=== PATIENT | female | born 1990 | race Caucasian/White ===

== ENCOUNTER 2017-01-11 05:08 | Emergency (ER) | payer OTHER ==
[~2017-01-11] VITALS: Ht 167.6 cm; Wt 70.3 kg
[2017-01-11 05:22] VITALS: BP 109/68
[2017-01-11] MEDS ORDERED: IBUPROFEN 800 MG TAB PO ONE (06:00)
--- NOTE | 2017-01-11 07:43 | REP ---
Clinical: Trauma. Technique: AP, lateral, bilateral oblique views of the right ankle. Findings: Medial and lateral malleolar fractures are appreciated with overlying soft tissue swelling. No subcutaneous emphysema or radiodense foreign body. Impression: Closed bimalleolar ankle fractures with overlying soft tissue swelling. Signed by James Cherry MD 01/11/2017 07:34 A
--- NOTE | 2017-01-13 09:38 | ED PDOC ---
Post-Departure Follow-Up ncog faxed formal report of right ankle film for follow up Merlene Jefferson MD January 13, 2017 09:38
[2017-01-15] MEDS ORDERED: HYDR-3713 PO (07:46)
== END 2017-01-11 06:57 | disposition home or self-care (01) ==
LOC: M ED 06:45
DX: S82.844A Nondisplaced bimalleolar fracture of right lower leg, initial encounter for closed fracture (principal); X58.XXXA Exposure to other specified factors, initial encounter; Y92.830 Public park as the place of occurrence of the external cause; Y99.8 Other external cause status; F17.200 Nicotine dependence, unspecified, uncomplicated

== ENCOUNTER 2017-01-19 14:59 | Day surgery (SDC) | payer OTHER ==
[~2017-01-19] VITALS: Ht 167.6 cm; Wt 75.8 kg
[~2017-01-19 14:59] MED LIST: HYDR-3713 PO
[2017-01-19] MEDS ORDERED: VANCOMYCIN HCL 1,000 MG, VIAL MATE ADAPTER 1 EACH in D5W 250 ML IV ONE (15:15)
[2017-01-19 15:31] LABS: CONTROL LINE UCG INT CTR LINE PRESENT
[2017-01-19] MEDS ORDERED: LR 1,000 ML IV ONE (16:00)
[2017-01-19] MEDS ORDERED: ceFAZolin 1GM INJ (J0690) As Ordered ONE (18:56)
[2017-01-19] MEDS ORDERED: fentaNYL 100 MCG/2 ML INJECTION (J3010) As Ordered ONE (19:01)
[2017-01-19] MEDS ORDERED: MIDAZOLAM INJ 2 MG/2 ML VIAL (J2250) As Ordered ONE (19:01)
[2017-01-19] MEDS ORDERED: PROPOFOL 500 MG/50 ML VIAL As Ordered ONE (19:01)
[2017-01-19] MEDS ORDERED: ONDANSETRON 4MG/2ML VIAL (J2405) As Ordered ONE (19:03)
[2017-01-19] MEDS ORDERED: LIDOCAINE 2% INJ 100 MG/5 ML SDV (FOR ANES.) As Ordered ONE (19:03)
[2017-01-19] MEDS ORDERED: dexameTHASONE 4 MG/ML 1ML VIAL (J1100) As Ordered ONE (19:03)
[2017-01-19] MEDS ORDERED: PROPOFOL 200 MG/20 ML VIAL As Ordered ONE ×2 (19:50→20:21)
[2017-01-19] MEDS ORDERED: BUPIVACAINE/EPIN 0.25% 30 ML VIAL As Ordered ONE (20:18)
[2017-01-19] MEDS ORDERED: ONDANSETRON 4MG/2ML VIAL (J2405) IV PRN (21:00)
[2017-01-19] MEDS ORDERED: LR 1,000 ML IV SCH ×2 (21:00→21:15)
[2017-01-19] MEDS ORDERED: fentaNYL 100 MCG/2 ML INJECTION (J3010) IV PRN (21:00)
[2017-01-19] MEDS ORDERED: NORCO, ANEXSIA 5/325MG TABLET (HYDROcodone/ACETAMINOPHEN) PO PRN (21:15)
[2017-01-19 21:20] VITALS: BP 122/71
[2017-01-19] MEDS: NORCO, ANEXSIA 5/325MG TABLET (HYDROcodone/ACETAMINOPHEN) PO PRN (21:41)
[2017-01-19 22:14] VITALS: BP 120/77
[2017-01-19 22:45] VITALS: BP 109/61
[2017-01-19 23:20] VITALS: BP 122/71
[2017-01-19] MEDS: MORPHINE 4 MG/ML 1ML SYRINGE IV PRN (23:35)
[2017-01-19 23:50] VITALS: BP 108/71
--- NOTE | 2017-01-20 01:24 | REP ---
Clinical: Fracture. Open reduction and fixation. Technique: Intraoperative fluoroscopic imaging. Findings: Three intraoperative images demonstrate the patient to be status post open reduction and fixation with orthopedic hardware spanning the distal fibular/lateral malleolar fracture and medial malleolar fracture. Satisfactory alignment noted. Total fluoroscopic time 18 seconds. Impression: Status post open reduction and fixation for bimalleolar fractures with satisfactory reduction. Signed by James Cherry MD 01/20/2017 01:16 A
[2017-01-20] MEDS: NORCO, ANEXSIA 5/325MG TABLET (HYDROcodone/ACETAMINOPHEN) PO PRN ×5 (01:31→18:58)
[2017-01-20 01:40] VITALS: BP 119/72
[2017-01-20] MEDS: MORPHINE 4 MG/ML 1ML SYRINGE IV PRN ×3 (02:06→18:13)
[2017-01-20 04:30] VITALS: BP 112/66
[2017-01-20 06:00] VITALS: BP 112/78
--- NOTE | 2017-01-20 06:56 | RO ---
DATE OF PROCEDURE: 01/19/2017 PREPROCEDURE DIAGNOSIS: Right ankle bimalleolar fracture. POSTPROCEDURE DIAGNOSIS: Right ankle bimalleolar fracture. PROCEDURE: Open reduction internal fixation of right ankle bimalleolar fracture. SURGEON: Dr. Cachorro Michele LABEL FOLDER: ANESTHESIA: Spinal. ESTIMATED BLOOD LOSS: Less than 30 mL. COMPLICATIONS: None. PROCEDURE: Antibiotics were given intravenously preoperatively and then successful spinal anesthetic was induced, a tourniquet was placed on the right upper thigh and not inflated. The right lower extremity was prepped and draped in the usual sterile fashion then elevated and after appropriate time out, the tourniquet was inflated. I first addressed the medial aspect of the ankle fracture. Small and slightly curved anterior medial incision was made and then dissected carefully through the soft tissues and protecting and saphenous neurovascular structures down to the fracture site. It was interesting that there was a large thickened band of periosteum that was completely infolded into the fracture site. This was pulled out and then the joint was irrigated. All the hematoma and clot was removed and then I was able to ensure that I could get an anatomic open reduction with the point of reduction forceps. Then I turned my attention to the lateral side of the ankle joint. A lateral longitudinal incision was made. I dissected down to the fracture site and exposed the oblique fracture and opened the fracture site and cleaned it of consolidative clot and hematoma with a curette, rongeur and pickups. Then I copiously irrigated with sterile saline solution. Then when I felt I had adequate visualization of the fracture edges, an open anatomic reduction was performed with a point of reduction forceps. Once it was clamped in position, I placed an interfragmentary compression screw across the fracture site as perpendicular as possible using the 3.5 drill and then the 2.5 drill measuring and then placing a 3.5 cortical screw. This has good purchase. I then contoured a 7 hole plate as a neutralization plate across the interfragmentary screw and fixed it distally first with a cancellous screw and then one of the proximal holes was fixed with a cortical screw. Fluoroscopic imaging at this point showed that it appeared the plate was in good position and the fracture was well reduced. I then filled the remaining two holes above the fracture site with cortical screws and then two of the three distal holes were then additionally filled with fully threaded cancellous screws with good purchase. At this point, fluoroscopic imaging in the AP, mortise and lateral planes showed that the fibular fracture was well reduced and the hardware was in good position. The medial fracture site was then exposed. Once again, I ensure I had a good reduction and then I used two threaded guide pins from the 4.5 cannulate screw set to cross the fracture site, and then I had to adjust them because the first placement was a bit too close to the shoulder of the joint and thus I repositioned the threaded guide pins. Once I was satisfied that they were in reasonable position and the fracture was anatomically reduced, I used the 3.5 drill just to drill the near cortex over the threaded guide pins from the 4.5 cannulated screw set and then placed two partially threaded 4.5 cannulated screws over the top of the threaded guide pins across the fracture site. This provided good rigid fixation and fluoroscopic imaging at this point showed that the screws were in good position and the mortise was well reduced as was the fracture in general. It was nice and stable. There was no evidence of any mortise widening or instability of the syndesmosis. At this point, I concluded the procedure by copiously irrigated the wounds, let the tourniquet down, I closed the medial wound making sure that the large fold of periosteum was laid across the fracture site and then closed the deep subdermal tissues with interrupted #2-0 PDS sutures and skin was closed with haylee and then laterally I closed over the plate the deep soft tissues with interrupted #2-0 PDS sutures, skin was closed with haylee. 0.25% Marcaine with Epinephrine was placed medially and laterally. Dry sterile bulky dressing was applied followed by a well padded short leg plaster cast and then she was transferred to the recovery room in stable condition. There were no intraoperative complications. GELY
[2017-01-20 10:00] VITALS: BP 130/80
[2017-01-20 14:00] VITALS: BP 120/78
== END 2017-01-20 19:45 | disposition home or self-care (01) ==
LOC: M SDC 14:59 → M MSPAV 22:14 → M SDC 01-20 19:45
PROVIDERS: ATTEND Orthopaedic Surgery
DX: S82.841A Displaced bimalleolar fracture of right lower leg, initial encounter for closed fracture (principal); W23.1XXA Caught, crushed, jammed, or pinched between stationary objects, initial encounter; Y92.89 Other specified places as the place of occurrence of the external cause; Y93.89 Activity, other specified; Y99.8 Other external cause status; F17.210 Nicotine dependence, cigarettes, uncomplicated; D64.9 Anemia, unspecified; Z88.0 Allergy status to penicillin; Z88.1 Allergy status to other antibiotic agents; Z88.2 Allergy status to sulfonamides; Z86.79 Personal history of other diseases of the circulatory system
CPT/HCPCS: 27814; 73610; 84703; C1776

== ENCOUNTER → 2017-09-21 | Outpatient (REF) | payer OTHER | LOC: M LAB REF 13:22 | DX: J02.9 Acute pharyngitis, unspecified (principal) ==

== ENCOUNTER 2017-12-15 08:01 | Emergency (ER) | payer MEDICAID, SELFPAY, OTHER ==
[2017-12-15] MEDS: IBUPROFEN 800 MG TAB PO ×2 (08:49)
== END 2017-12-15 09:32 | disposition home or self-care (01) ==
LOC: M ED 08:01
DX: S93.402A Sprain of unspecified ligament of left ankle, initial encounter (principal); X50.1XXA Overexertion from prolonged static or awkward postures, initial encounter; Y92.098 Other place in other non-institutional residence as the place of occurrence of the external cause; F17.210 Nicotine dependence, cigarettes, uncomplicated; Z88.0 Allergy status to penicillin; Z88.2 Allergy status to sulfonamides; Z88.8 Allergy status to other drugs, medicaments and biological substances
CPT/HCPCS: 73610

== ENCOUNTER → 2018-02-08 | Outpatient (CLI) | payer OTHER | LOC: M EKG 16:09 | DX: I51.9 Heart disease, unspecified (principal) | CPT/HCPCS: 93005 ==

== ENCOUNTER 2018-07-03 23:01 | Emergency (ER) | payer OTHER ==
[2018-07-03] MEDS: TETANUS/DIPHTHERIA TOX ADSORB ADULT 0.5ML SYR/VIAL (90714) IM (23:30)
[2018-07-03 23:40] LABS: HEMATOCRIT 40.5 % (36.0-47.0); HEMOGLOBIN 13.7 g/dl (12.0-15.5); MEAN CORPUSCULAR HEMOGLOBIN 31.9 pg (27.0-33.0); MEAN CORPUSCULAR HGB CONC 33.8 g/dl (32.0-36.5); MEAN CORPUSCULAR VOLUME 94.4 fl (80.0-96.0); PLATELET COUNT, AUTOMATED 303 10^3/uL (150-450); RED BLOOD COUNT 4.29 10^6/uL (4.00-5.40); RED CELL DISTRIBUTION WIDTH 11.9 % (11.5-14.5); WHITE BLOOD COUNT 11.4 10^3/uL (4.0-10.0)
[2018-07-03 23:58] LABS: CONTROL LINE HCG INT CTR LINE PRESENT; HCG, SERUM QUALITATIVE NEGATIVE (NEGATIVE)
[2018-07-04 00:02] LABS: AMPHETAMINES LEVEL URINE NEGATIVE (NEGATIVE); BARBITURATES URINE NEGATIVE (NEGATIVE); BENZODIAZEPINES URINE NEGATIVE (NEGATIVE); CANNABINOIDS URINE NEGATIVE (NEGATIVE); COCAINE METABOLITE URINE NEGATIVE (NEGATIVE); METHADONE URINE NEGATIVE (NEGATIVE); OPIATES URINE NEGATIVE (NEGATIVE); PHENCYCLIDINE URINE NEGATIVE (NEGATIVE)
[2018-07-04 00:26] LABS: ACETAMINOPHEN LEVEL < 2.0 UG/ML (10.0-30.0); ALBUMIN 4.3 GM/DL (3.2-5.2); ALBUMIN/GLOBULIN RATIO 1.19 (1.00-1.93); ALKALINE PHOSPHATASE 39 U/L (45-117); ALT/SGPT 19 U/L (12-78); ANION GAP 9 MEQ/L (8-16); AST/SGOT 14 U/L (7-37); BILIRUBIN,DIRECT 0.1 MG/DL (0.0-0.2); BILIRUBIN,TOTAL 0.3 MG/DL (0.2-1.0); BLOOD UREA NITROGEN 6 MG/DL (7-18); CALCIUM LEVEL 8.7 MG/DL (8.5-10.1); CARBON DIOXIDE LEVEL 24 MEQ/L (21-32); CHLORIDE LEVEL 108 MEQ/L (98-107); CREATININE FOR GFR 0.64 MG/DL (0.55-1.30); ETHYL ALCOHOL (ETHANOL) 0.184 % (0.000-0.010); GLOMERULAR FILTRATION RATE > 60.0 (>60); GLUCOSE, FASTING 90 MG/DL (70-100); POTASSIUM SERUM 3.7 MEQ/L (3.5-5.1); SODIUM LEVEL 141 MEQ/L (136-145); THYROID STIMULATING HORMONE 0.894 uIU/ML (0.358-3.740); TOTAL PROTEIN 7.9 GM/DL (6.4-8.2)
== END 2018-07-04 01:34 | disposition home or self-care (01) ==
LOC: M ED 07-04 01:34
DX: F10.229 Alcohol dependence with intoxication, unspecified (principal); Y90.0 Blood alcohol level of less than 20 mg/100 ml; Z60.9 Problem related to social environment, unspecified; S50.812A Abrasion of left forearm, initial encounter; X78.8XXA Intentional self-harm by other sharp object, initial encounter; Y92.89 Other specified places as the place of occurrence of the external cause; Z88.0 Allergy status to penicillin; Z88.2 Allergy status to sulfonamides; Z88.8 Allergy status to other drugs, medicaments and biological substances
CPT/HCPCS: 90714

== ENCOUNTER 2020-03-27 04:50 | Inpatient (IN) | payer BC, MEDICAID, OTHER ==
[2020-03-27] MEDS ORDERED: NICOTINE 21MG/24HR 1 EA TRANSDERMAL ONE (07:54)
[2020-03-28] MEDS ORDERED: ACETAMINOPHEN TAB 650MG DOSE (2X325MG) As Ordered ONE (09:42)
[2020-03-28] MEDS ORDERED: ACETAMINOPHEN TAB 650MG DOSE (2X325MG) ONE (09:42)
[2020-03-28] MEDS ORDERED: FLUoxetine 20 MG CAP As Ordered ONE (12:29)
[2020-03-28] MEDS ORDERED: FLUoxetine 20 MG CAP ONE (12:29)
[2020-03-28] MEDS ORDERED: NICOTINE 21MG/24HR 1 EA TRANSDERMAL ONE (12:29)
[2020-03-28] MEDS ORDERED: hydrOXYzine 25 MG TAB ONE (12:29)
[2020-03-28] MEDS ORDERED: hydrOXYzine 25 MG TAB As Ordered ONE (12:30)
[2020-03-28] MEDS ORDERED: NICOTINE 21MG/24HR 1 EA TRANSDERMAL As Ordered ONE (12:30)
[2020-03-29] MEDS ORDERED: ONDANSETRON 4 MG TAB ONE (07:55)
[2020-03-29] MEDS ORDERED: FLUoxetine 20 MG CAP ONE (07:55)
[2020-03-29] MEDS ORDERED: FLUoxetine 20 MG CAP As Ordered ONE (07:55)
[2020-03-29] MEDS ORDERED: ONDANSETRON 4 MG TAB As Ordered ONE (08:46)
[2020-03-29] MEDS ORDERED: AMANTADINE 100MG TABLET ONE (09:00)
[2020-03-29] MEDS ORDERED: cloNIDine 0.1 MG TAB As Ordered ONE ×2 (11:45→20:14)
[2020-03-29] MEDS ORDERED: ONDANSETRON 4 MG ORAL DISINTEGRATING TAB As Ordered ONE (17:56)
[2020-03-29] MEDS ORDERED: ONDANSETRON 4 MG ORAL DISINTEGRATING TAB ONE (17:56)
[2020-03-29] MEDS ORDERED: cloNIDine 0.1 MG TAB ONE (20:14)
[2020-03-29] MEDS ORDERED: traZODone 50 MG TAB ONE (20:14)
[2020-03-29] MEDS ORDERED: traZODone 50 MG TAB As Ordered ONE (20:15)
[2020-03-30] MEDS ORDERED: cloNIDine 0.1 MG TAB ONE ×2 (08:10→20:10)
[2020-03-30] MEDS ORDERED: NICOTINE 21MG/24HR 1 EA TRANSDERMAL ONE (08:10)
[2020-03-30] MEDS ORDERED: FLUoxetine 20 MG CAP ONE (08:10)
[2020-03-30] MEDS ORDERED: FLUoxetine 20 MG CAP As Ordered ONE (08:10)
[2020-03-30] MEDS ORDERED: NICOTINE 21MG/24HR 1 EA TRANSDERMAL As Ordered ONE (08:10)
[2020-03-30] MEDS ORDERED: cloNIDine 0.1 MG TAB As Ordered ONE ×2 (08:10→20:10)
[2020-03-30] MEDS ORDERED: hydrOXYzine 25 MG TAB As Ordered ONE (08:10)
[2020-03-30] MEDS ORDERED: hydrOXYzine 25 MG TAB ONE (08:10)
[2020-03-30] MEDS ORDERED: traZODone 50 MG TAB ONE (20:10)
[2020-03-30] MEDS ORDERED: traZODone 50 MG TAB As Ordered ONE (20:10)
[2020-03-31] MEDS ORDERED: cloNIDine 0.1 MG TAB As Ordered ONE ×2 (08:14→19:55)
[2020-03-31] MEDS ORDERED: hydrOXYzine 25 MG TAB ONE ×2 (08:14→16:23)
[2020-03-31] MEDS ORDERED: NICOTINE 21MG/24HR 1 EA TRANSDERMAL ONE (08:14)
[2020-03-31] MEDS ORDERED: cloNIDine 0.1 MG TAB ONE ×2 (08:14→19:55)
[2020-03-31] MEDS ORDERED: MAALOX 30 ML SUSP *UDC ONE (08:14)
[2020-03-31] MEDS ORDERED: hydrOXYzine 25 MG TAB As Ordered ONE ×2 (08:14→16:23)
[2020-03-31] MEDS ORDERED: FLUoxetine 20 MG CAP ONE (08:14)
[2020-03-31] MEDS ORDERED: NICOTINE 21MG/24HR 1 EA TRANSDERMAL As Ordered ONE (08:15)
[2020-03-31] MEDS ORDERED: FLUoxetine 20 MG CAP As Ordered ONE (08:15)
[2020-03-31] MEDS ORDERED: MOM 30ML SUSPENSION UDC As Ordered ONE (08:15)
[2020-03-31] MEDS ORDERED: MAALOX 30 ML SUSP *UDC As Ordered ONE (08:20)
[2020-03-31] MEDS ORDERED: ONDANSETRON 4 MG TAB ONE (10:14)
[2020-03-31] MEDS ORDERED: ONDANSETRON 4 MG TAB As Ordered ONE (10:14)
[2020-03-31] MEDS ORDERED: traZODone 50 MG TAB As Ordered ONE (19:55)
[2020-03-31] MEDS ORDERED: traZODone 50 MG TAB ONE (19:55)
[2020-04-01] MEDS ORDERED: hydrOXYzine 25 MG TAB As Ordered ONE (06:30)
[2020-04-01] MEDS ORDERED: hydrOXYzine 25 MG TAB ONE (06:30)
[2020-04-01] MEDS ORDERED: NICOTINE 21MG/24HR 1 EA TRANSDERMAL ONE (08:11)
[2020-04-01] MEDS ORDERED: cloNIDine 0.1 MG TAB ONE (08:11)
[2020-04-01] MEDS ORDERED: FLUoxetine 20 MG CAP ONE (08:11)
[2020-04-01] MEDS ORDERED: FLUoxetine 20 MG CAP As Ordered ONE (08:11)
[2020-04-01] MEDS ORDERED: cloNIDine 0.1 MG TAB As Ordered ONE (08:12)
[2020-04-01] MEDS ORDERED: NICOTINE 21MG/24HR 1 EA TRANSDERMAL As Ordered ONE (08:13)
[2020-04-01] MEDS ORDERED: AMANTADINE 100MG TABLET ONE (09:00)
[2020-04-27 12:52] LABS: BASO # 0.1 10^3/uL (0.0-0.2); BASO % 0.7 % (0.0-1.0); EOS # 0.1 10^3/uL (0.0-0.5); EOS % 1.3 % (0.0-3.0); HEMATOCRIT 35.3 % (36.0-47.0); HEMOGLOBIN 12.1 g/dl (12.0-15.5); LYMPH # 2.1 10^3/uL (1.5-5.0); LYMPH % 20.1 % (24.0-44.0); MEAN CORPUSCULAR HEMOGLOBIN 31.5 pg (27.0-33.0); MEAN CORPUSCULAR HGB CONC 34.3 g/dl (32.0-36.5); MEAN CORPUSCULAR VOLUME 91.9 fl (80.0-96.0); MONO # 1.1 10^3/uL (0.0-0.8); MONO % 10.1 % (0.0-5.0); NEUTROPHILS # 7.1 10^3/uL (1.5-8.5); NEUTROPHILS % 67.5 % (36.0-66.0); PLATELET COUNT, AUTOMATED 287 10^3/uL (150-450); RED BLOOD COUNT 3.84 10^6/uL (4.00-5.40); WHITE BLOOD COUNT 10.4 10^3/uL (4.0-10.0)
[2020-05-03 10:06] LABS: ACETAMINOPHEN LEVEL < 2.0 UG/ML (10.0-30.0); ALBUMIN 3.9 GM/DL (3.2-5.2); ALT/SGPT 25 U/L (12-78); BILIRUBIN,DIRECT 0.2 MG/DL (0.0-0.2); BILIRUBIN,TOTAL 0.8 MG/DL (0.2-1.0); BLOOD UREA NITROGEN 14 MG/DL (7-18); CALCIUM LEVEL 8.9 MG/DL (8.5-10.1); CARBON DIOXIDE LEVEL 27 MEQ/L (21-32); CHLORIDE LEVEL 107 MEQ/L (98-107); ETHYL ALCOHOL (ETHANOL) < 0.003 % (0.000-0.010); GLOMERULAR FILTRATION RATE > 60.0 (>60); GLUCOSE, FASTING 80 MG/DL (70-100); HCG, SERUM QUALITATIVE NEGATIVE (NEGATIVE); POTASSIUM SERUM 3.2 MEQ/L (3.5-5.1); SALICYLATE LEVEL 4.4 MG/DL (5.0-30.0); SODIUM LEVEL 140 MEQ/L (136-145); THYROID STIMULATING HORMONE 0.247 uIU/ML (0.358-3.740); TOTAL PROTEIN 7.5 GM/DL (6.4-8.2)
[2020-05-03 10:07] LABS: AMPHETAMINES LEVEL URINE NEGATIVE (NEGATIVE); BARBITURATES URINE NEGATIVE (NEGATIVE); BENZODIAZEPINES URINE POSITIVE (NEGATIVE); CANNABINOIDS URINE POSITIVE (NEGATIVE); COCAINE METABOLITE URINE POSITIVE (NEGATIVE); METHADONE URINE POSITIVE (NEGATIVE); OPIATES URINE NEGATIVE (NEGATIVE); PHENCYCLIDINE URINE NEGATIVE (NEGATIVE)
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
--- NOTE | 2020-05-24 11:32 | MHIPN ---
DATE: 03/30/2020 The patient was admitted on 03/27/2020 and she self-presented to the emergency room saying that she felt unsafe and she requested admission to feel safe. HISTORY OF PRESENT ILLNESS: The patient was seen before the day of her admission and she had come to the emergency room asking to be admitted because she wanted to feel safe and she requested not to be sent home. She reported symptoms related to substance abuse and during the interview she had delayed responses and appeared internally preoccupied. She told staff at the emergency room I dont know whats real anymore. INTERVAL HISTORY: Today, the patient reports feeling better. She says that she is sleeping well. She denies going through withdrawals at this time. Reports good appetite and an improvement in her mood. She reports a previous history of anxiety and depression, but she says that she thinks she has had a good response to Prozac. By the time of her admission, she was not on any medications. SUBJECTIVE: The patient denies suicidal or homicidal ideation, denies thought delusions and denies auditory, visual, or tactile hallucinations at this time. OBJECTIVE (MENTAL STATUS EXAMINATION): The patient was alert and oriented times three, pleasant, cooperative, with good eye contact. She was dressed in hospital clothes, with good hygiene. Speech was normal in rate, rhythm, tone, and volume and she was spontaneous and fluent. Thought process was linear and coherent. Thought content was negative for suicidal or homicidal ideation, negative for thought delusions, and she denies auditory, visual, or tactile hallucinations. She was not seen responding to internal stimuli. Her mood and affect are euthymic and her affect is reactive, congruent with mood. Insight and judgment are good. DIAGNOSES: 1. Major depressive disorder, single episode, moderate. 2. Stimulant use disorder. 3. Cannabis use disorder. 4. Chemical use disorder. ASSESSMENT AND PLAN: The patient has had a good response to treatment, she has been receiving Prozac and for her withdrawal she received clonidine 0.1 mg twice a day and amantadine 100 mg daily. She was feeling nauseous and she received Zofran ODT 4 mg sublingual every 8 hours as needed for vomiting. The patient will continue with the same medications and we will continue to monitor. She will probably be ready for discharge on Wednesday. GELY
--- NOTE | 2020-05-24 11:33 | MHIPN ---
DATE: 03/31/2020 HISTORY: Ms. Briseyda Smallwood was admitted a couple days ago to the inpatient mental health unit after she came to the emergency room asking to be admitted. The patient was found to be depressed and could not contract for safety. It was believed at the moment that her reaction could be secondary to substance abuse. SUBJECTIVE: The patient reports that she wants to leave, she says that she wants to go home, that her sister and her children are going back to [place] and she would like to spend the night with them, with her family, she does not want to be discharged tomorrow, 04/01/2020, because she says that what she was hoping was to spend the night at her house. As this tag writer explained that it is better if she leaves tomorrow morning, she gets upset because she says that she signed in voluntarily, but even though she came voluntarily to the floor, she says that she does not know that she was admitted as a 9.39. She denies suicidal ideation, denies homicidal ideation, denies thought delusions, and denies hallucinations. She denies medication side effects and denies cravings. OBJECTIVE (MENTAL STATUS EXAMINATION): The patient was alert and oriented times three, she was dressed in hospital clothes, she was superficially cooperative and easily irritated. Her eye contact was poor, her thought process was linear and coherent, and her thought content was negative for suicidal or homicidal thoughts and negative for thought delusions at the time of her mental status exam, but she had anxious and irritable thoughts related to her discharge. Her mood and affect were anxious and irritable and her insight and judgment were still limited. ASSESSMENT AND PLAN: The patient seems to be inpatient to be discharged, she does not want to wait, but she will have to wait until she sees her inpatient provider tomorrow. I think that one of the reasons as of why she wants to be discharged is because she might be experiencing some cravings given the fact that she has a substance abuse problem. The patient has been compliant with medications, has been sociable in the unit, has been cooperative, and apparently she does not need more treatment, but I believe that her substance abuse problem needs to be addressed. She is still not insightful about the severity of her problem. I have encouraged her to keep attending groups and to seek advice and help with the staff at inpatient mental health unit ([facility]). GELY
--- NOTE | 2020-05-24 13:44 | MHDS ---
PSYCHIATRIC DISCHARGE DATE OF ADMISSION: 03/28/2020 DATE OF DISCHARGE: 04/01/2020 DIAGNOSES: 1. Major depressive disorder, single episode, moderate. 2. Stimulant use disorder. 3. Tobacco use disorder. 4. Cannabis use disorder. DISCHARGE MEDICATIONS: - Vistaril 50 mg twice daily as needed for anxiety - nicotine patch 14 mg, transdermal patch, one patch daily as needed for nicotine withdrawal - Prozac 20 mg daily. A paper prescription was written for patient's discharge. That is in patient's discharge folder. DISPOSITION: Patient is being discharged to home. DIET: Regular. ACTIVITY: As tolerated. FOLLOWUP: Patient will followup with [facility]. Please see sr. merchandise planner's note, Andrew, on patient's continued followup. BRIEF REASON FOR ADMISSION: Patient is a single female who was admitted a few days ago to the inpatient mental health unit. She brought herself to the emergency room requesting admission. She reported that she was depressed and could not contract for safety. Patient has a long history of polysubstance abuse. States that she has had a bad year and fallen back into drug use. She lost custody of her daughter, but the daughter is actually with her mother. She reports that several days ago she was contemplating jumping off a bridge, because she was having suicidal thoughts and believing that people were following her. On 03/29/2020, patient was experiencing withdrawal symptoms from stimulant use. She was prescribed clonidine 0.1 mg twice daily and Amantadine 100 mg, Zofran ODT 4 mg sublingual every 8 hours as needed for vomiting. She responded well to that. Reports that she only had withdrawal symptoms on that day but reports that it was very "tortuous" for her. She reported that she had symptoms of nausea and vomiting. She states that she vomited several times during the day, felt helpless and alone. She reports that she had a good weekend. Feels better today. Patient reports to me that she has been working on long-term and short-term goals. States that her short-term goals are to see her grandparents and see her daughter, who is 9 years old, residing with her mother. The long-term goals are to get her GED and possibly work on a counseling degree. Patient reports that she is very good today, feels better. She is sleeping well. Not going through withdrawal at this time. Reports good appetite and improvement in her mood. She feels that she is stable. She is reporting efficacy with Prozac and is requesting discharge today. MENTAL STATUS EXAMINATION: Patient is alert and oriented times four to person, place, time, and situation. Pleasant and cooperative in the interview, making good eye contact. She is appropriately dressed. Good hygiene and grooming. Speech is normal rate, tone, and volume, and she is conversant. Thought process is linear, goal oriented, and coherent. She has no expressions or ideations for suicidal or homicidal ideation , planning, or intent. She is not observed and denies any thought delusions, auditory or visual hallucinations. No paranoia, psychosis, sangita. She is not responding to internal stimuli. Her mood and affect are greatly improved, euthymic. Her affect is congruent with her mood. Memory is intact. Her insight and judgment are good. DIAGNOSES: 1. Major depressive disorder, single episode, moderate. 2. Stimulant disorder. 3. Cannabis use disorder. 4. Tobacco use disorder. At this time, patient is stable for discharge, and she has met criteria for discharge by the treatment team. GELY
[2020-06-23 13:02] LABS: BLOOD UREA NITROGEN 12 MG/DL (7-18); CALCIUM LEVEL 9.5 MG/DL (8.5-10.1); CARBON DIOXIDE LEVEL 28 MEQ/L (21-32); CHLORIDE LEVEL 105 MEQ/L (98-107); CREATININE FOR GFR 0.85 MG/DL (0.55-1.30); GLOMERULAR FILTRATION RATE > 60.0 (>60); GLUCOSE, FASTING 84 MG/DL (70-100); MAGNESIUM LEVEL 2.2 MG/DL (1.8-2.4); POTASSIUM SERUM 4.1 MEQ/L (3.5-5.1); SODIUM LEVEL 136 MEQ/L (136-145)
== END 2020-04-01 09:20 | disposition home or self-care (01) | DRG 751 ==
LOC: M ED 04:50 → M PSY 03-28 02:45
PROVIDERS: ADMIT Psychiatry & Neurology Addiction Medicine; ATTEND Psychiatry & Neurology Addiction Medicine
DX: F32.1 Major depressive disorder, single episode, moderate (principal); F15.90 Other stimulant use, unspecified, uncomplicated; F17.200 Nicotine dependence, unspecified, uncomplicated; F12.90 Cannabis use, unspecified, uncomplicated; Z79.899 Other long term (current) drug therapy; Z88.2 Allergy status to sulfonamides; Z88.8 Allergy status to other drugs, medicaments and biological substances

== ENCOUNTER 2020-04-15 01:24 | Inpatient (IN) | payer BC, MEDICAID, OTHER ==
[~2020-04-15] VITALS: Ht 167.6 cm; Wt 67.4 kg
[2020-04-15 01:42] LABS: BASO # 0.1 10^3/uL (0.0-0.2); BASO % 0.7 % (0.0-1.0); EOS # 0.1 10^3/uL (0.0-0.5); EOS % 0.9 % (0.0-3.0); HEMATOCRIT 34.2 % (36.0-47.0); HEMOGLOBIN 11.6 g/dl (12.0-15.5); LYMPH # 3.1 10^3/uL (1.5-5.0); MEAN CORPUSCULAR HEMOGLOBIN 31.5 pg (27.0-33.0); MEAN CORPUSCULAR HGB CONC 33.9 g/dl (32.0-36.5); MEAN CORPUSCULAR VOLUME 92.9 fl (80.0-96.0); MONO % 9.7 % (0.0-5.0); NEUTROPHILS # 5.9 10^3/uL (1.5-8.5); NEUTROPHILS % 58.4 % (36.0-66.0); PLATELET COUNT, AUTOMATED 260 10^3/uL (150-450); RED BLOOD COUNT 3.68 10^6/uL (4.00-5.40); WHITE BLOOD COUNT 10.2 10^3/uL (4.0-10.0)
[2020-04-15] MEDS ORDERED: NS 1,000 ML IV ONE (01:45)
[2020-04-15 01:57] LABS: HCG, SERUM QUALITATIVE NEGATIVE (NEGATIVE)
[2020-04-15 02:20] LABS: ACETAMINOPHEN LEVEL < 2.0 UG/ML (10.0-30.0); ALBUMIN 3.8 GM/DL (3.2-5.2); ALT/SGPT 15 U/L (12-78); BILIRUBIN,DIRECT < 0.1 MG/DL (0.0-0.2); BILIRUBIN,TOTAL 0.2 MG/DL (0.2-1.0); BLOOD UREA NITROGEN 13 MG/DL (7-18); CALCIUM LEVEL 8.9 MG/DL (8.5-10.1); CARBON DIOXIDE LEVEL 28 MEQ/L (21-32); CHLORIDE LEVEL 108 MEQ/L (98-107); CPK CREATINE PHOSPHOKINASE 106 U/L (26-192); CREATININE FOR GFR 0.69 MG/DL (0.55-1.30); ETHYL ALCOHOL (ETHANOL) 0.025 % (0.000-0.010); GLOMERULAR FILTRATION RATE > 60.0 (>60); GLUCOSE, FASTING 101 MG/DL (70-100); POTASSIUM SERUM 3.5 MEQ/L (3.5-5.1); SALICYLATE LEVEL 4.1 MG/DL (5.0-30.0); SODIUM LEVEL 141 MEQ/L (136-145); THYROID STIMULATING HORMONE 0.473 uIU/ML (0.358-3.740); TOTAL PROTEIN 7.1 GM/DL (6.4-8.2)
[2020-04-15] MEDS ORDERED: PROZ20CA11 PO (02:44)
[2020-04-15] MEDS ORDERED: HYDR-3363 PO (02:44)
[2020-04-15 02:48] LABS: AMPHETAMINES LEVEL URINE NEGATIVE (NEGATIVE); BARBITURATES URINE NEGATIVE (NEGATIVE); BENZODIAZEPINES URINE NEGATIVE (NEGATIVE); CANNABINOIDS URINE POSITIVE (NEGATIVE); COCAINE METABOLITE URINE NEGATIVE (NEGATIVE); METHADONE URINE NEGATIVE (NEGATIVE); OPIATES URINE NEGATIVE (NEGATIVE); PHENCYCLIDINE URINE NEGATIVE (NEGATIVE)
[2020-04-15] MEDS ORDERED: LORazepam 2 MG/ML VIAL IV STA (04:32)
[2020-04-15] MEDS ORDERED: LORazepam 2 MG TAB PO PRN (17:15)
[2020-04-15] MEDS ORDERED: MOM 30ML SUSPENSION UDC PO PRN (17:15)
[2020-04-15] MEDS ORDERED: MAALOX 30 ML SUSP *UDC PO PRN (17:15)
[2020-04-15] MEDS ORDERED: cloNIDine 0.1 MG TAB PO PRN (17:15)
[2020-04-15] MEDS: THIAMINE 100 MG TAB PO SCH (18:30)
[2020-04-15] MEDS: hydrOXYzine 25 MG TAB PO SCH (21:00)
[2020-04-15 21:08] VITALS: BP 126/69
[2020-04-15 21:09] VITALS: BP 126/69
[2020-04-16 06:29] VITALS: BP 133/87
[2020-04-16 07:25] VITALS: BP 133/87
[2020-04-16] MEDS: FLUoxetine 20 MG CAP PO SCH (09:19)
[2020-04-16] MEDS: FOLIC ACID 1 MG TAB PO SCH (09:19)
[2020-04-16] MEDS: THIAMINE 100 MG TAB PO SCH ×2 (09:19→21:33)
[2020-04-16] MEDS: hydrOXYzine 25 MG TAB PO SCH ×2 (09:19→21:33)
[2020-04-16] MEDS: MULTIVITAMINS/MINERALS THERAP 1 TAB PO SCH (09:19)
[2020-04-16] MEDS: NICOTINE 21MG/24HR 1 EA TRANSDERMAL TD SCH (11:35)
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
--- NOTE | 2020-04-16 14:05 | HPEPDOC ---
General Date of Admission Apr 15, 2020 at 17:13 Date of Service: Apr 16, 2020 Chief Complaint The patient is a 29-year-old female admitted with a reason for visit of Unspecified Depressive Disorder. Source: Patient Exam Limitations: No limitations Timing/Duration: Other (yesterday) Severity: Other (N/A) Associated Symptoms: Other (suicidal) History of Present Illness 29 YOF with PMHx of Depression, tried to harm herself yesterday by taking unknown amount of Benedryl,Hydroxyzine,prozac,meth and blas. According to pt she tried to hurst herself as she missed her children and her mother has the custody of her children. Pt denies any associated symptoms but does complaint of persistant depression. She is not suicidal or homicidal at present.Pt offers no medical complaints Home Medications Scheduled Fluoxetine HCl (Prozac) 20 Mg Capsule, 20 MG PO DAILY, (Reported) Hydroxyzine HCl (Hydroxyzine HCl) 25 Mg Tablet, 25 MG PO BID, (Reported) Allergies Coded Allergies: Penicillins (Unverified Allergy, Intermediate, HIVES, 04/15/20) Sulfa (Sulfonamide Antibiotics) (Verified Allergy, Intermediate, HIVES, 04/15/20) meperidine (Verified Allergy, Intermediate, HIVES, 04/15/20) Past Medical History Medical History depression Surgical History ORIF rt ankle Family History REVIEWED, NON CONTRIBUTORY Social History * Smoker: Denies Alcohol: occationally Drugs: marijuana, prescription drugs, other (blas,meth) A-FIB/CHADSVASC A-FIB History Current/History of A-Fib/PAF?: No Review of Systems Constitutional: Denies: Chills, Fever, Malaise, Night Sweats, Weakness, Fatigue, Weight Loss, Lethargy, Other Eyes: Denies: Pain, Vision change, Conjunctivae inflammation, Eyelid inflammation, Redness, Other Pulmonary: Denies: Dyspnea, Cough, Pleuritic Chest Pain, Other Symptoms Cardiovascular: Denies: Chest Pain, Palpitations, Orthopnea, Paroxysmal Noc. Dyspnea, Edema, Lt Headedness, Other Symptoms Gastrointestinal: Denies: Nausea, Vomiting, Abdominal Pain, Diarrhea, Constipation, Melena, Hematochezia, Other Symptoms Hematologic: Denies: Bruising, Bleeding Excessively, Petecchia, Purpura, Enlarged Lymph Nodes, Other Hematologic Endocrine: Denies: Polydipsia, Polyphagia, Polyuria, Heat Intolerance, Cold Intolerance, Other Endocrine Sx Musculoskeletal: Denies: Neck Pain, Back Pain, Shoulder Pain, Arm Pain, Hand Pain, Leg Pain, Foot Pain, Joint Pain, Muscle Pain, Spasms, Other Symptoms Neurological: Denies: Weakness, Numbness, Incoordination, Change in speech, Confusion, Seizures, Other Symptoms Psych: Reports: Depression, Thoughts of Self Harm Physical Examination General Exam: Positive: Alert, Cooperative Eye Exam: Positive: PERRLA, Conjunctiva & lids normal Neck Exam: Positive: Supple Chest Exam: Positive: Clear to auscultation, Normal air movement Heart Exam: Positive: Rate Normal, Regular Rhythm Abdomen Exam: Positive: Normal bowel sounds, Soft Extremity Exam: Positive: Normal pulses Skin Exam: Positive: Nl turgor and temperature Neuro Exam: Positive: Strength at 5/5 X4 ext, Sensation Intact, Cranial Nerves 3-12 NL Psych Exam: Positive: Mental status NL, Mood NL, Oriented x 3 Vital Signs Vital Signs Date Time Temp Pulse Resp B/P (MAP) Pulse Ox O2 Delivery O2 Flow Rate FiO2 04/16/20 07:25 69 133/87 04/16/20 06:29 97.7 16 04/15/20 21:09 97 Room Air Problems (1) Poly-drug misuser Status: Chronic Problem Text: hx of poly-drug abuse Pt took multiple presdcription/OTC/and street drugs along with alcohol to self harm herself. Pt is clinically stable now, with NL vital signs, NL physical exam CBC/CMP WNL Please call as needed (2) Suicidal ideation Status: Acute Problem Text: admitted to in pt mental health unit individual and group councelling pharma intervention as per psych Plan / VTE VTE Prophylaxis Ordered?: No VTE Exclusion Mechanical Proph: Other VTE Exclusion Pharmacological: Other ROBERTO ALVA MD Apr 16, 2020 14:05
[2020-04-16 17:56] VITALS: BP 117/60
[2020-04-16 20:00] VITALS: BP 130/70
[2020-04-16] MEDS: traZODone 50 MG TAB PO PRN (21:33)
[2020-04-17 06:00] VITALS: BP 121/56
[2020-04-17 06:59] VITALS: BP 121/56
[2020-04-17] MEDS: ACETAMINOPHEN TAB 650MG DOSE (2X325MG) PO PRN (07:14)
[2020-04-17] MEDS: hydrOXYzine 25 MG TAB PO SCH ×2 (07:59→20:11)
[2020-04-17] MEDS: NICOTINE 21MG/24HR 1 EA TRANSDERMAL TD SCH (07:59)
[2020-04-17] MEDS: FOLIC ACID 1 MG TAB PO SCH (07:59)
[2020-04-17] MEDS: FLUoxetine 20 MG CAP PO SCH (07:59)
[2020-04-17] MEDS: MULTIVITAMINS/MINERALS THERAP 1 TAB PO SCH (07:59)
[2020-04-17] MEDS: THIAMINE 100 MG TAB PO SCH ×2 (07:59→20:11)
[2020-04-17] MEDS ORDERED: ONDANSETRON 4 MG TAB PO PRN (08:30)
[2020-04-17] MEDS: AMANTADINE 100MG TABLET PO SCH (10:22)
[2020-04-17 13:47] VITALS: BP 136/79
--- NOTE | 2020-04-17 14:07 | MHIPNPDOC ---
[facility] Progress Note Progress Note DATE OF SERVICE: 04/17/20 HISTORY: Patient is a 29 year old Female with her second admission in less than a month. On this occasion patient took an overdose of Atarax, Prozac and ETOH which she reports readily. She is however not reporting that she also had an overdose of Benadryl with Stimulants and that she had told her sister that she "didn't want to live anymore" VITAL SIGNS: See below. NEW TEST RESULTS: . CURRENT MEDICATIONS: See below. MENTAL STATUS EXAMINATION: Patient is a 29-year old female, who is s/p suicide attempt by overdose. Speech: Is minimal. Language skills are good. Thought processes including: linear and goal oriented. Thought content: irritability, mild depression due to withdrawal symptoms. Abstract reasoning, and computation: fair Description of associations: none Description of abnormal or psychotic thoughts: None Judgment: fair Insight: fair Orientation: alert and oriented Recent and remote memory: intact Attention span and concentration: good Language: good Fund of knowledge: average, congruent with her education Mood: Mildly Depressed. Affect: Flat/apathetic DIAGNOSES: 1. Unspecified Depressive Disorder, s/p suicide attempt by overdose 2. Stimulant Use Disorder 3. Cannabis Use Disorder 4. ETOH Use Disoder ASSESSMENT: Patient is not stable for discharge. She is observed to be w ithdrawing from Stimulant Use. She is being medicated for Stimulant Withdrawal. Patient had initially told staff that she had been in sobriety for a month. Patient was assessed in the bathroom with several staff helping her during severe withdrawal symptoms of vomiting. Zofran ODT 4 mg every 8 hours ordered. Amantadine 100 mg daily and Clonidine 0.1 mg twice daily ordered. Patient was unable to speak during this time She has been extremely reticent about her recent drug use and the withdrawal symptoms may have been curtailed had she been forthcoming with this information. Patient is now complaining of nausea, has been vomiting, has general aches and pain. Attempted to meet with patient in the afternoon when she may have felt better MANAGEMENT PLAN: We will stabilize her and observe for any withdrawal complications. Patient is not requesting rehab although this was reinforced on this admission as it was on the last admission two weeks ago. 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 I have highly recommended an intensive outpatient substance abuse treatment if it is available to her. EKG ordered to determine any QT prolongation. Sinus Bradycardia with QT interval of 562. surgical consultant aware. TIME SPENT: 35 minutes. Vital Signs Vital Signs Date Time Temp Pulse Resp B/P (MAP) Pulse Ox O2 Delivery O2 Flow Rate FiO2 04/17/20 06:59 98.7 77 16 121/56 (77) Room Air 04/15/20 21:09 97 Current Medications Current Medications Medications (Trade) Dose Ordered Sig/Tushar Route PRN Reason Start Time Stop Time Status Last Admin Dose Admin Acetaminophen (Tylenol Tab) 650 mg Q6HP PRN PO HEADACHE or DISCOMFORT 04/15/20 17:15 04/17/20 07:14 Al Hydrox/Mg Hydrox/Simethicone (Mylanta) 30 ml Q4HP PRN PO HEARTBURN/INDIGESTION 04/15/20 17:15 04/17/20 07:59 Amantadine HCl (Symmetrel) 100 mg DAILY PO 04/17/20 09:00 04/17/20 10:22 Clonidine HCl (Catapres) 0.1 mg TIDP PRN PO WITHDRAWAL SYMPTOMS 04/15/20 17:15 Fluoxetine HCl (PROzac) 20 mg DAILY PO 04/16/20 09:00 04/17/20 07:59 Folic Acid (Folic Acid) 1 mg DAILY PO 04/16/20 09:00 04/17/20 07:59 Home Med (Med Rec Complete!) ASDIRECTED XX 04/15/20 14:30 04/15/20 14:29 DC Hydroxyzine HCl (Atarax) 25 mg BID PO 04/15/20 21:00 04/17/20 07:59 Lorazepam (Ativan) 2 mg ASDIRECTED PRN PO SEE PROTOCOL 04/15/20 17:15 Lorazepam (Ativan) 2 mg STAT STAT IV 04/15/20 04:32 04/15/20 04:33 DC 04/15/20 04:38 Magnesium Hydroxide (Milk Of Magnesia) 30 ml DAILYPRN PRN PO CONSTIPATION 04/15/20 17:15 Multivitamins (Theragram-M) 1 tab DAILY PO 04/16/20 09:00 04/17/20 07:59 Nicotine (Nicoderm Cq 21mg) 1 patch DAILY TD 04/16/20 11:30 04/17/20 07:59 Ondansetron HCl (Zofran Odt) 4 mg Q8HP PRN PO NAUSEA OR VOMITING 04/17/20 09:30 Ondansetron HCl (Zofran) 4 mg Q8HP PRN PO NAUSEA OR VOMITING 04/17/20 08:30 04/17/20 09:24 DC 04/17/20 08:41 Thiamine HCl (Thiamine HCl) 100 mg BID PO 04/15/20 18:00 04/18/20 09:01 04/17/20 07:59 Trazodone HCl (Desyrel) 50 mg QHSP PRN PO INSOMNIA 04/15/20 17:15 04/16/20 21:33 Allergies Coded Allergies: Penicillins (Unverified Allergy, Intermediate, HIVES, 04/15/20) Sulfa (Sulfonamide Antibiotics) (Verified Allergy, Intermediate, HIVES, 04/15/20) meperidine (Verified Allergy, Intermediate, HIVES, 04/15/20) LATRICE AVENDAÑO NP Apr 17, 2020 14:07
[2020-04-17] MEDS: ONDANSETRON 4 MG ORAL DISINTEGRATING TAB PO PRN (16:59)
[2020-04-17 17:57] VITALS: BP 142/82
[2020-04-17 20:07] VITALS: BP 142/85
[2020-04-17] MEDS: cloNIDine 0.1 MG TAB PO SCH (20:11)
[2020-04-18 04:10] VITALS: BP 120/63
[2020-04-18 05:39] VITALS: BP 120/63
[2020-04-18] MEDS: ONDANSETRON 4 MG ORAL DISINTEGRATING TAB PO PRN ×2 (07:44→17:37)
[2020-04-18] MEDS: NICOTINE 21MG/24HR 1 EA TRANSDERMAL TD SCH (08:23)
[2020-04-18] MEDS: MULTIVITAMINS/MINERALS THERAP 1 TAB PO SCH (08:23)
[2020-04-18] MEDS: AMANTADINE 100MG TABLET PO SCH (08:23)
[2020-04-18] MEDS: FOLIC ACID 1 MG TAB PO SCH (08:23)
[2020-04-18] MEDS: cloNIDine 0.1 MG TAB PO SCH ×2 (08:24→20:07)
[2020-04-18] MEDS: THIAMINE 100 MG TAB PO SCH (08:25)
[2020-04-18] MEDS: hydrOXYzine 25 MG TAB PO SCH ×2 (08:25→20:07)
[2020-04-18] MEDS: FLUoxetine 20 MG CAP PO SCH (08:25)
--- NOTE | 2020-04-18 14:20 | IPNPDOC ---
Date Seen The patient was seen on 04/18/20. Progress Note RN called re: abnormal EKG sinus bradycardia Pt is asymptomatic with no heart block. plan: no further intervention monitor for dizziness, near syncope, lightheadedness, chest pressure, n/v. if symptomatic, repeat ekg and call md if 3rd degree or 2nd degree type 2 mobitz heart block. VS, I&O, 24H, Fishbone Vital Signs/I&O Vital Signs Date Time Temp Pulse Resp B/P (MAP) Pulse Ox O2 Delivery O2 Flow Rate FiO2 04/18/20 08:24 129/81 04/18/20 05:39 97.9 82 14 99 Room Air JALEESA JIMÉNEZ MD Apr 18, 2020 14:20
--- NOTE | 2020-04-18 15:15 | MHIPNPDOC ---
[facility] Progress Note Progress Note DATE OF SERVICE: 04/18/20 HISTORY: Patient is a 29 year old Single, Unemployed, Domiciled, Female who is s/p suicide attempt by overdose. She had initially only reporting to having only taken Prozac and Hydroxyzine with ETOH to get some "sleep." She stated her her initial Psychiatric Evaluation that she had been clean for 1 month, the ED reported that she had taken Benadryl, Adry and ETOH and other medications. Patient refused to disclose this. VITAL SIGNS: See below. NEW TEST RESULTS: . CURRENT MEDICATIONS: See below. MENTAL STATUS EXAMINATION: Patient is a 29-year old female, who is s/p suicide attempt by overdose. Calm and cooperative in the interview. She is not experiencing withdrawal today and is superficially euphoric at times in the interview Speech: Is Spontaneous, conversant Language skills are Good Thought processes including: Linear and goal oriented, although seems to be superficial in her descriptions of how she plans to move forward with her discharge. Today she wants an inpatient rehab and feels that returning to her mother's house will be sufficient Thought content: mild depression, anxiety and nervousness Abstract reasoning, and computation: fair Description of associations: None Description of abnormal or psychotic thoughts: None Judgment: Fair Insight: fair Orientation: alert and oriented Recent and remote memory: Intact Attention span and concentration: Good Language: Good Fund of knowledge: Average Mood: Reporting being euthymic. Affect: Bright, euphoric and expansive - during the interview patient appears to be very superficial as she seems to have rapid resolution DIAGNOSES: 1.Unspecified Depressive Disorder, s/p suicide attempt by overdose 2. Stimulant Use Disorder 3. Cannabis Use Disorder 4. ETOH Use Disode ASSESSMENT: Patient is not longer experiencing withdrawal symptoms, is apologetic about her demeanor yesterday. She denies depression and anxiety today. States she has a list of short term goals for herself and wants to move to inpatient rehab. MANAGEMENT PLAN: Patient continued on home medications, we will discharge her when she is stable. At this time, patient is hopeful that she can find inpatient rehab TIME SPENT: 30 minutes. Vital Signs Vital Signs Date Time Temp Pulse Resp B/P (MAP) Pulse Ox O2 Delivery O2 Flow Rate FiO2 04/18/20 08:24 129/81 04/18/20 05:39 97.9 82 14 99 Room Air Current Medications Current Medications Medications (Trade) Dose Ordered Sig/Tushra Route PRN Reason Start Time Stop Time Status Last Admin Dose Admin Acetaminophen (Tylenol Tab) 650 mg Q6HP PRN PO HEADACHE or DISCOMFORT 04/15/20 17:15 04/17/20 07:14 Al Hydrox/Mg Hydrox/Simethicone (Mylanta) 30 ml Q4HP PRN PO HEARTBURN/INDIGESTION 04/15/20 17:15 04/17/20 07:59 Amantadine HCl (Symmetrel) 100 mg DAILY PO 04/17/20 09:00 04/18/20 08:23 Clonidine HCl (Catapres) 0.1 mg BID PO 04/17/20 21:00 04/18/20 08:24 Clonidine HCl (Catapres) 0.1 mg TIDP PRN PO WITHDRAWAL SYMPTOMS 04/15/20 17:15 04/17/20 16:12 DC Fluoxetine HCl (PROzac) 20 mg DAILY PO 04/16/20 09:00 04/18/20 08:25 Folic Acid (Folic Acid) 1 mg DAILY PO 04/16/20 09:00 04/18/20 08:23 Home Med (Med Rec Complete!) ASDIRECTED XX 04/15/20 14:30 04/15/20 14:29 DC Hydroxyzine HCl (Atarax) 25 mg BID PO 04/15/20 21:00 04/18/20 08:25 Lorazepam (Ativan) 2 mg ASDIRECTED PRN PO SEE PROTOCOL 04/15/20 17:15 Lorazepam (Ativan) 2 mg STAT STAT IV 04/15/20 04:32 04/15/20 04:33 DC 04/15/20 04:38 Magnesium Hydroxide (Milk Of Magnesia) 30 ml DAILYPRN PRN PO CONSTIPATION 04/15/20 17:15 Multivitamins (Theragram-M) 1 tab DAILY PO 04/16/20 09:00 04/18/20 08:23 Nicotine (Nicoderm Cq 21mg) 1 patch DAILY TD 04/16/20 11:30 04/18/20 08:23 Ondansetron HCl (Zofran Odt) 4 mg Q8HP PRN PO NAUSEA OR VOMITING 04/17/20 09:30 04/18/20 07:44 Ondansetron HCl (Zofran) 4 mg Q8HP PRN PO NAUSEA OR VOMITING 04/17/20 08:30 04/17/20 09:24 DC 04/17/20 08:41 Thiamine HCl (Thiamine HCl) 100 mg BID PO 04/15/20 18:00 04/18/20 09:01 DC 04/18/20 08:25 Trazodone HCl (Desyrel) 50 mg QHSP PRN PO INSOMNIA 04/15/20 17:15 04/16/20 21:33 Allergies Coded Allergies: Penicillins (Unverified Allergy, Intermediate, HIVES, 04/15/20) Sulfa (Sulfonamide Antibiotics) (Verified Allergy, Intermediate, HIVES, 04/15/20) meperidine (Verified Allergy, Intermediate, HIVES, 04/15/20) LATRICE AVENDAÑO NP Apr 18, 2020 15:15
--- NOTE | 2020-04-18 16:48 | MHIPNPDOC ---
[facility] Progress Note Progress Note DATE OF SERVICE: 04/18/20 HISTORY: Patient is s/p overdose as a suicide attempt VITAL SIGNS: See below. NEW TEST RESULTS: CURRENT MEDICATIONS: See below. MENTAL STATUS EXAMINATION: Patient is c74-nasl old female, who is experiencing withdrawal symptoms from use of Adry and ETOH. Mental Status Exam Patient is dressed in hospital scrubs, hygiene and grooming is good. Calm and cooperative in the interview. Alert and oriented. Making good eye contact and having conversant speech, normal rate tone and volume. She denies depression or anxiety, no reports of suicidal ideation. She had previously stated that she was not depressed since her discharge but states that she has trouble wanting to be sober. No paranoid, no sangita, no delusions, obsessions or auditory hallucinations. She has intact memory, her cognitive functioning is congruent with her educations. Insight and judgment is fair DIAGNOSES: 1. Unspecified Depressive Disorder, s/p suicide attempt by overdose 2. Stimulant Use Disorder 3. Cannabis Use Disorder 4. ETOH Use Disoder ASSESSMENT: Patient is improving from withdrawal symptoms. Reporting short term goals for distancing herself from her addictions. Observed with superficial mood and rapid resolution. Encouraged patient to consider inpatient rehab and continued rehab therapy for up to 6-12 months to increase her chances of success and getting custody of her daughter. MANAGEMENT PLAN: stabilize and attempt inpatient rehab TIME SPENT:30 minutes. Vital Signs Vital Signs Date Time Temp Pulse Resp B/P (MAP) Pulse Ox O2 Delivery O2 Flow Rate FiO2 04/18/20 08:24 129/81 04/18/20 05:39 97.9 82 14 99 Room Air Current Medications Current Medications Medications (Trade) Dose Ordered Sig/Tushar Route PRN Reason Start Time Stop Time Status Last Admin Dose Admin Acetaminophen (Tylenol Tab) 650 mg Q6HP PRN PO HEADACHE or DISCOMFORT 04/15/20 17:15 04/17/20 07:14 Al Hydrox/Mg Hydrox/Simethicone (Mylanta) 30 ml Q4HP PRN PO HEARTBURN/INDIGESTION 04/15/20 17:15 04/17/20 07:59 Amantadine HCl (Symmetrel) 100 mg DAILY PO 04/17/20 09:00 04/18/20 08:23 Clonidine HCl (Catapres) 0.1 mg BID PO 04/17/20 21:00 04/18/20 08:24 Clonidine HCl (Catapres) 0.1 mg TIDP PRN PO WITHDRAWAL SYMPTOMS 04/15/20 17:15 04/17/20 16:12 DC Fluoxetine HCl (PROzac) 20 mg DAILY PO 04/16/20 09:00 04/18/20 08:25 Folic Acid (Folic Acid) 1 mg DAILY PO 04/16/20 09:00 04/18/20 08:23 Home Med (Med Rec Complete!) ASDIRECTED XX 04/15/20 14:30 04/15/20 14:29 DC Hydroxyzine HCl (Atarax) 25 mg BID PO 04/15/20 21:00 04/18/20 08:25 Lorazepam (Ativan) 2 mg ASDIRECTED PRN PO SEE PROTOCOL 04/15/20 17:15 Lorazepam (Ativan) 2 mg STAT STAT IV 04/15/20 04:32 04/15/20 04:33 DC 04/15/20 04:38 Magnesium Hydroxide (Milk Of Magnesia) 30 ml DAILYPRN PRN PO CONSTIPATION 04/15/20 17:15 Multivitamins (Theragram-M) 1 tab DAILY PO 04/16/20 09:00 04/18/20 08:23 Nicotine (Nicoderm Cq 21mg) 1 patch DAILY TD 04/16/20 11:30 04/18/20 08:23 Ondansetron HCl (Zofran Odt) 4 mg Q8HP PRN PO NAUSEA OR VOMITING 04/17/20 09:30 04/18/20 07:44 Ondansetron HCl (Zofran) 4 mg Q8HP PRN PO NAUSEA OR VOMITING 04/17/20 08:30 04/17/20 09:24 DC 04/17/20 08:41 Thiamine HCl (Thiamine HCl) 100 mg BID PO 04/15/20 18:00 04/18/20 09:01 DC 04/18/20 08:25 Trazodone HCl (Desyrel) 50 mg QHSP PRN PO INSOMNIA 04/15/20 17:15 04/16/20 21:33 Allergies Coded Allergies: Penicillins (Unverified Allergy, Intermediate, HIVES, 04/15/20) Sulfa (Sulfonamide Antibiotics) (Verified Allergy, Intermediate, HIVES, 04/15/20) meperidine (Verified Allergy, Intermediate, HIVES, 04/15/20) LATRICE AVENDAÑO NP Apr 18, 2020 16:48
[2020-04-18 16:52] VITALS: BP 108/70
[2020-04-18] MEDS: traZODone 50 MG TAB PO PRN (20:06)
[2020-04-18] MEDS: ACETAMINOPHEN TAB 650MG DOSE (2X325MG) PO PRN (20:06)
[2020-04-19 06:36] VITALS: BP 117/70
[2020-04-19] MEDS: hydrOXYzine 25 MG TAB PO SCH (08:06)
[2020-04-19 08:07] VITALS: BP 117/70
[2020-04-19] MEDS: cloNIDine 0.1 MG TAB PO SCH (08:07)
[2020-04-19] MEDS: AMANTADINE 100MG TABLET PO SCH (08:07)
[2020-04-19] MEDS: FOLIC ACID 1 MG TAB PO SCH (08:08)
[2020-04-19] MEDS: NICOTINE 21MG/24HR 1 EA TRANSDERMAL TD SCH (08:08)
[2020-04-19] MEDS: MULTIVITAMINS/MINERALS THERAP 1 TAB PO SCH (08:08)
[2020-04-19] MEDS: FLUoxetine 20 MG CAP PO SCH (08:08)
[2020-04-19] MEDS ORDERED: PROZ20CA11 PO (10:32)
[2020-04-19] MEDS ORDERED: HYDR-3363 PO (10:32)
--- NOTE | 2020-04-19 10:38 | MHDSPDOC ---
[facility] Discharge Summary Discharge Summary DATE OF ADMISSION: Apr 15, 2020 at 17:13 DATE OF DISCHARGE: April 19, 2020 1033 DISCHARGE DIAGNOSES: 1. Unspecified Depressive Disorder, s/p suicide attempt by overdose (she denies that this was a suicide attempt) 2. Stimulant Use Disorder 3. Cannabis Use Disorder 4. ETOH Use Disoder REASON FOR ADMISSION: Patient is a 29 year old Single, Unemployed, Domiciled Female who had overdosed on Adry, Methamphetamine, Benadryl, Prozac, Hydroxyzine with Alcohol. She reports that this was not a suicide attempt, per records, she had told her sister "I don't want to live anymore" CONSULTANTS INVOLVED: See Medical consultation during this admission TREATMENT AND PROGRESS ON THE UNIT : Patient was afforded various treatment modalities 1)Individual Therapy, 2) Group Therapy, 3) Medication Management, 4) Communication with family for the purpose of clarification and discharge planning. Patient was started on her home medications as well as needing medication management for Stimulant withdrawal. On her second day on the unit she was reporting that she was in withdrawal. Patient was engaged in treatment by day three. She was reporting a decrease in withdrawal symptoms. She was visible on the unit and social with peers. HOSPITAL COURSE: Patient was cooperative on the unit. She was experiencing with drawal symptoms from stimulants. She was nauseous, vomiting reporting having general aches and pain. She was compliant with treatment plan. DISCHARGE ASSESSMENT: Patient requested to be seen early this morning for individual therapy. She reports that she would like to discharged today because 1) she wants to spend time with her family 2) her 9 year old daughter starts school on Wednesday and she would like to put her on the bus. 3) Her mother is helping her make phone calls to Substance Abuse Treatment Facilities. I spoke to the patient frankly about her risk for exposure to the addictions. Patient and I spoke with her mother on speaker phone. Patient is planning to return to her mother's home. They will be camping as a family this weekend. Mother is assured that she will be with the patient the entire time. Karina (patient's mother) feels that patient is safe for discharge today. She is also helping patient to get into a Treatment Facility. I spoke to mother about patient's risk. I reinforced with patient and mother that I felt the patient has rapid resolution and that delaying her discharge a few days may help patient. Patient is aware that she may not be guaranteed a bed in an inpatient hospital and states that she intends to continue her search on her own. She denies depression, suicidal/homicidal thoughts and reports no anxiety. She states that the peers on the unit are not conducive to her wellness. Again, patient was encouraged to stay the weekend to avoid a relapse. Patient states, "I won't do anything, my mother will be watching me." She has a future court date regarding custody and will request court mandate for rehab on May 07, 2020. Discussed reasons for returning to the hospital. Patient verbalized understanding and states that she will return if she has worsening symptoms or return of any symptoms MENTAL STATUS EXAMINATION ON DISCHARGE: Patient is a 29-year old female, who is admitted to [facility] after an overdose. She is dressed appropriately, her hygiene and grooming is good Speech is normal rate tone and volume Language skills are good Thought processes including: linear and goal oriented Thought content: Denies Depression, anxiety and suicidal ideation Abstract reasoning, and computation: Good Description of associations: Denies and not observed with any abnormal psychiatric symptoms Description of abnormal or psychotic thoughts: Negative Judgment: Fair Insight: Fair Orientation to Alert and oriented Recent and remote memory: Intact Attention span and concentration: Good Language: Good Fund of knowledge: Average Mood: Euthymic Affect: Euthymic MEDICATIONS ON DISCHARGE: Prozac 20 mg daily Hydroxyzine 25 mg twice daily PRN for anxiety PLAN/FOLLOWUP ARRANGEMENTS: See Discharge Planners Notes The amount of time spent in the coordination of care for this patient was approximately 35 minutes. Vital Signs/I&Os Vital Signs Date Time Temp Pulse Resp B/P (MAP) Pulse Ox O2 Delivery O2 Flow Rate FiO2 04/19/20 08:07 117/70 04/19/20 06:36 98.7 72 16 99 Room Air Medications Scheduled Fluoxetine HCl (Prozac) 20 Mg Capsule, 20 MG PO DAILY for Depression, #7 Hydroxyzine HCl (Hydroxyzine HCl) 25 Mg Tablet, 25 MG PO BID for Anxiety, #7 Allergies Coded Allergies: Penicillins (Unverified Allergy, Intermediate, HIVES, 04/15/20) Sulfa (Sulfonamide Antibiotics) (Verified Allergy, Intermediate, HIVES, 04/15/20) meperidine (Verified Allergy, Intermediate, HIVES, 04/15/20) LATRICE AVENDAÑO NP Apr 19, 2020 10:38
--- NOTE | 2020-04-25 16:08 | ECGEPIP ---
[facility] - ED Test Date: 2020-04-15 Pat Name: DAKOTAH FALCON Department: Room: - Gender: Female Dental Office Assistant: : 1990 Requested By: REGINE Ma Order Number: [id number] Reading MD: Arnaud Camargo Measurements Intervals [place] Rate: 120 P: 49 IN: 111 QRS: 89 QRSD: 92 T: 49 QT: 400 QTc: 565 Interpretive Statements SINUS TACHYCARDIA WITH SHORT IN INTERVAL NONSPECIFIC T-WAVE ABNORMALITY ABNORMAL RHYTHM ECG SEE DOWNTIME SCANNED REPORT
--- NOTE | 2020-05-07 12:25 | ECGEPIP ---
[facility] Test Date: 2020-04-17 Pat Name: DAKOTAH FALCON Department: Room: [place] [address] Gender: Female Microcomputer Support Specialist: FABIOLA : 1990 Requested By: LATRICE AVENDAÑO Order Number: [id number] Reading MD: Casper Munoz Measurements Intervals [place] Rate: 50 P: 61 [place]: 150 QRS: 78 QRSD: 85 T: 83 QT: 562 QTc: 513 Interpretive Statements SINUS BRADYCARDIA MODERATE T-WAVE ABNORMALITY, CONSIDER ANTERIOR ISCHEMIA ABNORMAL ECG, PROLONGED QT SEE SCANNED DOWNTIME REPORT
== END 2020-04-19 12:14 | disposition home or self-care (01) | DRG 754 ==
LOC: M ED 01:24 → M ED INP 17:13 → M PSY 20:25
PROVIDERS: ADMIT Psychiatry & Neurology Addiction Medicine; ATTEND Psychiatry & Neurology Psychiatry
DX: F32.9 Major depressive disorder, single episode, unspecified (principal); F10.10 Alcohol abuse, uncomplicated; F15.90 Other stimulant use, unspecified, uncomplicated; F12.90 Cannabis use, unspecified, uncomplicated; Z88.2 Allergy status to sulfonamides; Z88.0 Allergy status to penicillin; Z88.8 Allergy status to other drugs, medicaments and biological substances; Z79.899 Other long term (current) drug therapy

== ENCOUNTER 2020-05-10 07:40 | Emergency (ER) | payer MEDICAID, OTHER ==
[~2020-05-10] VITALS: Ht 167.6 cm; Wt 68.0 kg
[2020-05-10 09:11] VITALS: BP 138/85
== END 2020-05-10 09:12 | disposition home or self-care (01) ==
LOC: M ED 07:40
DX: F11.20 Opioid dependence, uncomplicated (principal); F12.20 Cannabis dependence, uncomplicated; Z88.0 Allergy status to penicillin; Z88.2 Allergy status to sulfonamides

== ENCOUNTER → 2020-05-10 | Outpatient (CLI) | payer MEDICAID ==
[~2020-05-10] MED LIST changes: +HYDR-3363 PO; +PROZ20CA11 PO
== END ==
LOC: M OUTALCOH 10:14
PROVIDERS: ATTEND Psychiatry & Neurology Addiction Medicine
DX: Z13.39 Encounter for screening examination for other mental health and behavioral disorders (principal); F11.20 Opioid dependence, uncomplicated; F12.20 Cannabis dependence, uncomplicated; F16.20 Hallucinogen dependence, uncomplicated; F14.10 Cocaine abuse, uncomplicated

== ENCOUNTER → 2020-06-21 | Outpatient (CLI) | payer MEDICAID | LOC: M OUTALCOH 10:08 | PROVIDERS: ATTEND Psychiatry & Neurology Addiction Medicine | DX: Z13.39 Encounter for screening examination for other mental health and behavioral disorders (principal); F11.20 Opioid dependence, uncomplicated; F16.20 Hallucinogen dependence, uncomplicated ==

== ENCOUNTER 2020-07-15 17:09 | Emergency (ER) | payer MEDICAID, OTHER ==
[~2020-07-15] VITALS: Ht 167.6 cm; Wt 80.7 kg
[~2020-07-15 17:09] MED LIST changes: -HYDR50TA70 PO; -KETO2CR TOP; -SUBO8MIS SL
[2020-07-15] MEDS ORDERED: HYDR50TA70 PO (17:32)
[2020-07-15] MEDS ORDERED: SUBO8MIS SL (17:32)
[2020-07-15 18:34] LABS: BASO # 0.1 10^3/uL (0.0-0.2); BASO % 0.8 % (0.0-1.0); EOS # 0.3 10^3/uL (0.0-0.5); EOS % 3.3 % (0.0-3.0); HEMATOCRIT 32.1 % (36.0-47.0); HEMOGLOBIN 10.6 g/dl (12.0-15.5); LYMPH # 2.7 10^3/uL (1.5-5.0); LYMPH % 35.5 % (24.0-44.0); MEAN CORPUSCULAR HEMOGLOBIN 28.7 pg (27.0-33.0); MONO # 0.7 10^3/uL (0.0-0.8); MONO % 9.3 % (0.0-5.0); NEUTROPHILS # 3.9 10^3/uL (1.5-8.5); NEUTROPHILS % 50.8 % (36.0-66.0); PLATELET COUNT, AUTOMATED 254 10^3/uL (150-450); RED BLOOD COUNT 3.69 10^6/uL (4.00-5.40); WHITE BLOOD COUNT 7.6 10^3/uL (4.0-10.0)
[2020-07-15 18:53] LABS: ALBUMIN 3.5 GM/DL (3.2-5.2); ALT/SGPT 35 U/L (12-78); BILIRUBIN,DIRECT < 0.1 MG/DL (0.0-0.2); BILIRUBIN,TOTAL 0.3 MG/DL (0.2-1.0); BLOOD UREA NITROGEN 11 MG/DL (7-18); CALCIUM LEVEL 8.9 MG/DL (8.5-10.1); CARBON DIOXIDE LEVEL 31 MEQ/L (21-32); CHLORIDE LEVEL 103 MEQ/L (98-107); CREATININE FOR GFR 0.67 MG/DL (0.55-1.30); GLOMERULAR FILTRATION RATE > 60.0 (>60); GLUCOSE, FASTING 96 MG/DL (70-100); RHEUMATOID FACTOR QUANT < 10.0 IU/ML (<15.0); SODIUM LEVEL 137 MEQ/L (136-145); TOTAL PROTEIN 6.7 GM/DL (6.4-8.2)
[2020-07-15 18:59] LABS: HCG, SERUM QUALITATIVE NEGATIVE (NEGATIVE); MONO SCRN NEGATIVE (NEGATIVE)
[2020-07-15 19:04] LABS: HEMOGLOBIN A1c 5.3 %
[2020-07-15 19:05] LABS: ERYTHROCYTE SEDIMENTATION RATE 27 mm/hr (0-20)
[2020-07-15] MEDS ORDERED: KETO2CR TOP (19:27)
[2020-07-15 19:35] VITALS: BP 106/63
[2020-07-17 15:08] LABS: Lyme Disease IgG/IgM Antibodie <0.91 ISR (0.00-0.90); Lyme Disease IgM Ab Quantitati <0.80 index (0.00-0.79)
== END 2020-07-15 19:48 | disposition home or self-care (01) ==
LOC: M ED 17:09
DX: B35.0 Tinea barbae and tinea capitis (principal); M25.571 Pain in right ankle and joints of right foot; M25.572 Pain in left ankle and joints of left foot; M79.89 Other specified soft tissue disorders; R20.0 Anesthesia of skin; R20.2 Paresthesia of skin; R51.9 Headache, unspecified; K59.00 Constipation, unspecified; F32.9 Major depressive disorder, single episode, unspecified; Z98.890 Other specified postprocedural states; Z79.899 Other long term (current) drug therapy; Z79.891 Long term (current) use of opiate analgesic; Z88.0 Allergy status to penicillin; Z88.2 Allergy status to sulfonamides; F17.210 Nicotine dependence, cigarettes, uncomplicated

== ENCOUNTER → 2020-07-15 | Outpatient (RCR) | payer MEDICAID ==
[~2020-07-15] MED LIST changes: +HYDR50TA70 PO; +KETO2CR TOP; +SUBO8MIS SL
== END ==
LOC: M OUTALCOH 06-28 14:00
PROVIDERS: ATTEND Psychiatry & Neurology Addiction Medicine
DX: F11.20 Opioid dependence, uncomplicated (principal); F16.20 Hallucinogen dependence, uncomplicated; F12.20 Cannabis dependence, uncomplicated; F14.10 Cocaine abuse, uncomplicated; F17.200 Nicotine dependence, unspecified, uncomplicated

== ENCOUNTER → 2020-07-18 | Outpatient (REF) | payer MEDICAID ==
[~2020-07-18] MED LIST changes: +HYDR50TA70 PO; +KETO2CR TOP; +SUBO8MIS SL
[2020-07-18 17:35] LABS: HEMOGLOBIN 11.3 g/dl (12.0-15.5); MEAN CORPUSCULAR HEMOGLOBIN 29.7 pg (27.0-33.0); MEAN CORPUSCULAR HGB CONC 33.2 g/dl (32.0-36.5); MEAN CORPUSCULAR VOLUME 89.2 fl (80.0-96.0); PLATELET COUNT, AUTOMATED 280 10^3/uL (150-450); RED BLOOD COUNT 3.81 10^6/uL (4.00-5.40); WHITE BLOOD COUNT 9.4 10^3/uL (4.0-10.0)
[2020-07-18 19:36] LABS: ALBUMIN 3.6 GM/DL (3.2-5.2); ALT/SGPT 27 U/L (12-78); BILIRUBIN,TOTAL 0.2 MG/DL (0.2-1.0); BLOOD UREA NITROGEN 16 MG/DL (7-18); CALCIUM LEVEL 9.5 MG/DL (8.5-10.1); CARBON DIOXIDE LEVEL 28 MEQ/L (21-32); CHLORIDE LEVEL 105 MEQ/L (98-107); CHOLESTEROL LEVEL 184 MG/DL (<200); CHOLESTEROL RISK RATIO 5.111 (<5); CREATININE FOR GFR 0.75 MG/DL (0.55-1.30); GLOMERULAR FILTRATION RATE > 60.0 (>60); GLUCOSE, FASTING 101 MG/DL (70-100); HDL CHOLESTEROL 36 MG/DL (>40); LDL CHOLESTEROL 118 MG/DL (<100); NON-HDL-C 148 MG/DL; POTASSIUM SERUM 3.6 MEQ/L (3.5-5.1); RHEUMATOID FACTOR QUANT < 10.0 IU/ML (<15.0); SODIUM LEVEL 139 MEQ/L (136-145); TOTAL 25(OH) VITAMIN D 24.6 NG/ML (30.0-100.0); TOTAL PROTEIN 6.9 GM/DL (6.4-8.2); TRIGLYCERIDES LEVEL 150 MG/DL (<150)
[2020-07-18 20:01] LABS: HEPATITIS C VIRUS ABY INDEX 0.1 INDEX (<0.8)
[2020-07-18 20:02] LABS: HIV 1&2 SCREEN CENTAUR NEGATIVE (NEGATIVE)
[2020-07-18 20:47] LABS: ERYTHROCYTE SEDIMENTATION RATE 24 mm/hr (0-20)
[2020-07-20 16:07] LABS: ANTINUCLEAR ANTIBODIES DIRECT Negative (Negative); Lyme Disease IgG/IgM Antibodie <0.91 ISR (0.00-0.90); Lyme Disease IgM Ab Quantitati <0.80 index (0.00-0.79)
== END ==
LOC: M LAB REF 15:53
PROVIDERS: ATTEND Physician Assistant
DX: Z11.4 Encounter for screening for human immunodeficiency virus [HIV] (principal); M79.641 Pain in right hand; M79.642 Pain in left hand; E55.9 Vitamin D deficiency, unspecified; Z86.2 Personal history of diseases of the blood and blood-forming organs and certain disorders involving the immune mechanism; Z00.00 Encounter for general adult medical examination without abnormal findings; Z11.59 Encounter for screening for other viral diseases

== ENCOUNTER → 2020-07-25 | Outpatient (CLI) | payer OTHER ==
--- NOTE | 2020-07-25 13:28 | REP ---
INDICATION: PAIN IN BOTH WRISTS/LOW BACK PAIN. COMPARISON: None. TECHNIQUE: Five views. FINDINGS: There is a mild levoconvex lumbar curvature on the frontal view. Alignment is normal on lateral radiograph. Disc spaces are preserved and vertebral body heights are maintained. Pedicles and posterior elements are intact. Facet joints are normally aligned. There is no evidence of spondylolysis or spondylolisthesis. Psoas margins are symmetric. The upper sacrum is intact. IMPRESSION: Mild levoconvex lumbar curvature. Otherwise negative lumbar spine radiographs. <Electronically signed by Kalyan Sauer > 07/25/20 [id number]
--- NOTE | 2020-07-25 13:29 | REP ---
INDICATION: PAIN IN BOTH WRISTS/LOW BACK PAIN. COMPARISON: None. TECHNIQUE: Bilateral wrist radiographs: Four views of each wrist. FINDINGS: Overall mineralization pattern is normal. Bones, joints, and soft tissues are unremarkable bilaterally. No erosive changes seen. No evidence of arthropathy. IMPRESSION: Negative bilateral wrist radiographs. <Electronically signed by Kalyan Sauer > 07/25/20 [id number]
== END ==
LOC: M RAD 10:50
PROVIDERS: ATTEND Physician Assistant
DX: M54.5 Low back pain (principal); M25.531 Pain in right wrist

== ENCOUNTER 2020-08-13 09:00 | Outpatient (RCR) | payer MEDICAID | END 2020-08-15 | LOC: M OUTALCOH 09:00 | PROVIDERS: ATTEND Psychiatry & Neurology Addiction Medicine | DX: F11.20 Opioid dependence, uncomplicated (principal); F16.20 Hallucinogen dependence, uncomplicated; F12.20 Cannabis dependence, uncomplicated; F14.10 Cocaine abuse, uncomplicated; F17.200 Nicotine dependence, unspecified, uncomplicated ==

== ENCOUNTER 2020-09-12 09:00 | Outpatient (RCR) | payer MEDICAID | END 2020-09-15 | LOC: M OUTALCOH 09:00 | PROVIDERS: ATTEND Psychiatry & Neurology Addiction Medicine | DX: F11.20 Opioid dependence, uncomplicated (principal); F16.20 Hallucinogen dependence, uncomplicated; F12.20 Cannabis dependence, uncomplicated; F14.10 Cocaine abuse, uncomplicated; F17.200 Nicotine dependence, unspecified, uncomplicated ==

== ENCOUNTER 2020-09-30 14:00 | Outpatient (RCR) | payer MEDICAID | END 2020-10-13 | LOC: M OUTALCOH 14:00 | PROVIDERS: ATTEND Psychiatry & Neurology Addiction Medicine | DX: F11.20 Opioid dependence, uncomplicated (principal); F16.20 Hallucinogen dependence, uncomplicated; F14.10 Cocaine abuse, uncomplicated; F17.200 Nicotine dependence, unspecified, uncomplicated ==

== ENCOUNTER 2020-10-24 09:00 | Outpatient (RCR) | payer MEDICAID | END 2020-11-13 | LOC: M OUTALCOH 09:00 | PROVIDERS: ATTEND Psychiatry & Neurology Psychiatry | DX: F11.20 Opioid dependence, uncomplicated (principal); F16.20 Hallucinogen dependence, uncomplicated; F12.20 Cannabis dependence, uncomplicated; F14.10 Cocaine abuse, uncomplicated; F17.200 Nicotine dependence, unspecified, uncomplicated ==

== ENCOUNTER → 2021-04-03 | Outpatient (CLI) | payer MEDICAID | LOC: M OUTALCOH 07:54 | PROVIDERS: ATTEND Psychiatry & Neurology Psychiatry | DX: F12.20 Cannabis dependence, uncomplicated (principal); F11.20 Opioid dependence, uncomplicated ==

== ENCOUNTER 2021-04-14 08:45 | Outpatient (RCR) | payer MEDICAID | END 2021-04-15 | LOC: M OUTALCOH 08:45 | PROVIDERS: ATTEND Psychiatry & Neurology Psychiatry | DX: F11.20 Opioid dependence, uncomplicated (principal); F16.20 Hallucinogen dependence, uncomplicated; F12.20 Cannabis dependence, uncomplicated; F14.10 Cocaine abuse, uncomplicated; F17.200 Nicotine dependence, unspecified, uncomplicated ==

== ENCOUNTER 2021-05-14 08:45 | Outpatient (RCR) | payer MEDICAID | END 2021-05-15 | LOC: M OUTALCOH 08:45 | PROVIDERS: ATTEND Psychiatry & Neurology Psychiatry | DX: F11.20 Opioid dependence, uncomplicated (principal); F16.20 Hallucinogen dependence, uncomplicated; F12.20 Cannabis dependence, uncomplicated; F14.10 Cocaine abuse, uncomplicated; F17.200 Nicotine dependence, unspecified, uncomplicated ==

== ENCOUNTER 2021-06-02 08:45 | Outpatient (RCR) | payer MEDICAID | END 2021-06-15 | LOC: M OUTALCOH 08:45 | PROVIDERS: ATTEND Psychiatry & Neurology Psychiatry | DX: F10.20 Alcohol dependence, uncomplicated (principal); F12.20 Cannabis dependence, uncomplicated; Z72.0 Tobacco use ==

== ENCOUNTER → 2021-06-13 | Outpatient (CLI) | payer OTHER, SELFPAY | LOC: M LABSMTC 09:31 | PROVIDERS: ATTEND Pediatrics | DX: Z20.822 Contact with and (suspected) exposure to COVID-19 (principal) ==

== ENCOUNTER 2021-07-09 08:40 | Outpatient (RCR) | payer MEDICAID | END 2021-07-15 | LOC: M OUTALCOH 08:40 | PROVIDERS: ATTEND Psychiatry & Neurology Psychiatry | DX: F11.20 Opioid dependence, uncomplicated (principal); F16.20 Hallucinogen dependence, uncomplicated; F12.20 Cannabis dependence, uncomplicated; F14.10 Cocaine abuse, uncomplicated; F17.200 Nicotine dependence, unspecified, uncomplicated ==

== ENCOUNTER → 2022-06-19 | Outpatient (CLI) | payer OTHER | LOC: M WHC 15:42 | PROVIDERS: ATTEND Physician Assistant | DX: Z12.31 Encounter for screening mammogram for malignant neoplasm of breast (principal) ==

== ENCOUNTER → 2025-03-15 | Outpatient (RCR) | payer MEDICAID ==
[~2025-03-15] MED LIST changes: -PROZ20CA11 PO; +PROZ20CA12 PO
== END ==
LOC: M OUTALCOH 02-20 14:50
PROVIDERS: ATTEND Psychiatry & Neurology Psychiatry
DX: F11.20 Opioid dependence, uncomplicated (principal); F17.200 Nicotine dependence, unspecified, uncomplicated

== ENCOUNTER 2025-04-02 08:40 | Outpatient (RCR) | payer MEDICAID | END 2025-04-15 | LOC: M OUTALCOH 08:40 | PROVIDERS: ATTEND Psychiatry & Neurology Psychiatry | DX: F11.20 Opioid dependence, uncomplicated (principal); F17.200 Nicotine dependence, unspecified, uncomplicated ==